=== PATIENT | male | born 1965 | race Two or more races ===

== ENCOUNTER 2019-04-30 06:52 | Day surgery (SDC) | payer MEDICAID ==
[2019-04-30] MEDS ORDERED: ANESTHESIA TRAY IN PYXIS 1 EA TRAY MC ONE (07:03)
[2019-04-30 08:18] LABS: CALCIUM, SERUM 8.8 mg/dL (8.5-10.1); CREATININE 1.2 mg/dL (0.6-1.3); POTASSIUM 4.2 mmol/L (3.5-5.1)
[2019-04-30 08:25] LABS: ALBUMIN 3.6 g/dL (3.4-5.0); BILIRUBIN,TOTAL 0.2 mg/dL (0.2-1.0); TOTAL PROTEIN, SERUM 7.6 g/dL (6.4-8.2)
== END 2019-04-30 10:55 | disposition home or self-care (01) ==
LOC: DS 06:52
PROVIDERS: ATTEND Student in an Organized Health Care Education/Training Program
DX: M23.252 Derangement of posterior horn of lateral meniscus due to old tear or injury, left knee (principal); E11.9 Type 2 diabetes mellitus without complications; I10 Essential (primary) hypertension; G89.29 Other chronic pain; F32.9 Major depressive disorder, single episode, unspecified; D64.9 Anemia, unspecified; Z88.8 Allergy status to other drugs, medicaments and biological substances; Z53.9 Procedure and treatment not carried out, unspecified reason; Z79.899 Other long term (current) drug therapy; Z98.890 Other specified postprocedural states
CPT/HCPCS: 36415; 80053-TC; 82962-TC

== ENCOUNTER 2020-01-16 09:00 | Outpatient (CLI) | payer MEDICAID | END 2020-01-16 23:59 | disposition home or self-care (01) | LOC: LAB 09:00 | PROVIDERS: ATTEND Student in an Organized Health Care Education/Training Program | DX: Z01.812 Encounter for preprocedural laboratory examination (principal); Z20.828 Contact with and (suspected) exposure to other viral communicable diseases | CPT/HCPCS: 87426; C9803 ==

== ENCOUNTER 2020-01-21 06:02 | Day surgery (SDC) | payer MEDICAID ==
[~2020-01-21] VITALS: Ht 172.7 cm; Wt 99.8 kg
--- NOTE | 2020-01-21 06:45 | NUR ---
MS/RN OPENING NOTES PATIENT ARRIVED TO UNIT FOR DAY SURGERY OF THE LEFT KNEE. PATIENT IS ABLE TO AMBULATE. PATIENT IS ALERT AND ORIENTED X 4. NO SIGNS OF SOB OR RESPIRATORY DISTRESS. PATENT SIGNED ALL CONSENT FORMS BEFORE SURGERY. VITALS SIGNS HAVE BEEN TAKEN, WNL. PATIENT IS TOLERATING ROOM ARE WELL. 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 PATIENT IS A HARD STICK COULD NOT ACCESS IV, OR WILL GET IV ACCESS. WILL ENDORSE TO DAY SHIFT NURSE.
--- NOTE | 2020-01-21 07:30 | NUR ---
received pt. from [facility] nurse.npo skin warm and dry.no iv access.surgery notified.npo for knee surgery.
[2020-01-21 08:00] VITALS: BP 117/74
--- NOTE | 2020-01-21 09:00 | NUR ---
to or via bed.
[2020-01-21] MEDS ORDERED: FENTANYL PF 250MCG/5ML AMPUL ONE (09:28)
[2020-01-21] MEDS ORDERED: MIDAZOLAM HCL 2 MG/2ML VIAL ONE (09:28)
[2020-01-21] MEDS ORDERED: FAMOTIDINE/PF INJ 20 MG/2 ML VIAL IV ONE (09:28)
[2020-01-21] MEDS ORDERED: ANESTHESIA TRAY IN PYXIS 1 EA TRAY MC ONE (09:41)
[2020-01-21] MEDS ORDERED: EPINEPHRINE (1:1000) 1 MG/ML AMPUL ONE (10:18)
[2020-01-21] MEDS ORDERED: BUPIVACAINE 0.5 % PF 150 MG/30 ML VIAL ONE (10:26)
[2020-01-21] MEDS ORDERED: MORPHINE SULFATE/PF 10 MG/10ML (1MG/ML) AMPUL ONE (10:26)
--- NOTE | 2020-01-21 11:55 | NUR ---
returned to rm. via bed.skin warm and dry.pt. very groggy.iv infusing in lt. hand.emery wrap to lt. knee dry and intact.no complaints.vs stable.
--- NOTE | 2020-01-21 13:00 | NUR ---
VSIGNS STABLE. NO COMPLAINTS
--- NOTE | 2020-01-21 13:00 | NUR ---
JUST VOIDED,ATE SMALL LUNCH OF SANDWICH.TOLERATED WELL.
--- NOTE | 2020-01-21 15:00 | NUR ---
RN SPOKE WITH FAMILY ON PHONE.GIVEN DC INSTRUCTIONS,HEP LOCK OUT.TAKEN TO LOBBY VIA W/C ACCOMPANIED BY BEER COOLER.NO COMPLAINTS OFFERED.
== END 2020-01-21 14:00 | disposition home or self-care (01) ==
LOC: DS 06:02 → MED 06:03 → UNDOADMIN 06:03 → DS 14:00 → UNDODISIN 14:00
PROVIDERS: ATTEND Student in an Organized Health Care Education/Training Program
DX: S83.242A Other tear of medial meniscus, current injury, left knee, initial encounter (principal); X58.XXXA Exposure to other specified factors, initial encounter; Y93.89 Activity, other specified; Y92.89 Other specified places as the place of occurrence of the external cause; Y99.8 Other external cause status; M94.262 Chondromalacia, left knee; E11.9 Type 2 diabetes mellitus without complications; I10 Essential (primary) hypertension; F32.9 Major depressive disorder, single episode, unspecified; Z79.899 Other long term (current) drug therapy
CPT/HCPCS: 29881; 82962 ×2; A4217; A6253; J0171; J2250; J2274; J3010; J3490 ×2; G0378; J0690; J1885; J2405; J2704; J2765